=== PATIENT | male | born 1985 | race Caucasian/White ===

== ENCOUNTER 2016-06-19 17:31 | Observation (INO) | payer OTHER ==
[~2016-06-19] VITALS: Ht 182.9 cm; Wt 93.4 kg
[2016-06-19 17:45] LABS: BASO # 0.1 (0.0-0.2); BASO % 0.5 % (0.0-2.0); EOS # 0.1 (0.0-0.7); EOS % 0.5 % (0-4.0); GRAN # 10.3 (1.4-6.5); GRAN % 80.3 % (42.2-75.2); HEMATOCRIT 42.5 % (42.0-52.0); HEMOGLOBIN 14.7 g/dl (13.5-18.0); LYMPH # 1.5 (1.2-3.4); MEAN CELL VOLUME 89 fl (80.0-100.0); MEAN CORPUSCULAR HEMOGLOBIN 31 pg (27.0-31.0); MEAN CORPUSCULAR HGB CONC 35 g/dl (33.0-37.0); MEAN PLATELET VOLUME 10.3 fl (7.4-10.4); MONO # 0.8 (0.1-0.6); MONO % 6.4 % (1.7-9.3); PLATELET COUNT 266 K/mm3 (130-400); RED BLOOD COUNT 4.79 M/mm3 (4.20-5.60); REDCELL DISTRIBUTION WIDTH-CV 12.5 % (11.5-14.5); WHITE BLOOD COUNT 12.8 K/mm3 (4.8-10.8)
[2016-06-19 17:48] LABS: INR 1.1 (0.8-3.0); PROTHROMBIN TIME 12.4 SECONDS (9.7-12.8)
[2016-06-19 17:51] LABS: PARTIAL THROMBOPLASTIN TIME 28.2 SECONDS (26.0-37.0)
[2016-06-19 17:55] LABS: ADJUSTED CALCIUM 9.2 mg/dL (8.4-10.2); BILIRUBIN,TOTAL 0.9 mg/dL (0.0-1.0); CALCIUM 9.2 mg/dL (8.4-10.2); CREATININE, serum 1.06 mg/dL (0.66-1.25); POTASSIUM 3.6 mmol/L (3.4-5.0); TOTAL PROTEIN 7.2 gm/dL (6.4-8.2)
[2016-06-19 19:34] VITALS: BP 106/76; PULSE 81; TEMP 98.3
[2016-06-20 02:08] VITALS: BP 101/71; PULSE 77; TEMP 97.7
[2016-06-20 05:32] VITALS: BP 115/71; PULSE 78; TEMP 97.8
[2016-06-20 09:14] LABS: BASO % 0.6 % (0.0-2.0); EOS # 0.1 (0.0-0.7); EOS % 1.5 % (0-4.0); GRAN # 4.4 (1.4-6.5); GRAN % 60.3 % (42.2-75.2); HEMATOCRIT 39.5 % (42.0-52.0); HEMOGLOBIN 13.1 g/dl (13.5-18.0); LYMPH # 2.1 (1.2-3.4); LYMPH % 28.4 % (20.0-51.0); MEAN CELL VOLUME 91 fl (80.0-100.0); MEAN CORPUSCULAR HEMOGLOBIN 30 pg (27.0-31.0); MEAN CORPUSCULAR HGB CONC 33 g/dl (33.0-37.0); MEAN PLATELET VOLUME 10.5 fl (7.4-10.4); MONO # 0.7 (0.1-0.6); MONO % 9.1 % (1.7-9.3); PLATELET COUNT 255 K/mm3 (130-400); RED BLOOD COUNT 4.33 M/mm3 (4.20-5.60); REDCELL DISTRIBUTION WIDTH-CV 12.9 % (11.5-14.5); WHITE BLOOD COUNT 7.3 K/mm3 (4.8-10.8)
[2016-06-20 09:30] LABS: ADJUSTED CALCIUM 9.1 mg/dL (8.4-10.2); ALBUMIN 3.5 gm/dL (3.5-5.0); CALCIUM 8.7 mg/dL (8.4-10.2); CREATININE, serum 0.91 mg/dL (0.66-1.25); POTASSIUM 3.7 mmol/L (3.4-5.0); TOTAL PROTEIN 6.6 gm/dL (6.4-8.2)
[2016-06-20 10:00] VITALS: BP 123/78; PULSE 67; TEMP 98
[2016-06-20 14:06] VITALS: BP 117/83; PULSE 61; TEMP 98
[2016-06-20 17:19] VITALS: BP 118/76; PULSE 62; TEMP 97.8
[2016-06-20 21:53] VITALS: BP 114/77; PULSE 55; TEMP 97.8
[2016-06-21 06:22] VITALS: BP 125/84; PULSE 60; TEMP 97.8
[2016-06-21 07:13] LABS: ADJUSTED CALCIUM 9.3 mg/dL (8.4-10.2); ALBUMIN 3.3 gm/dL (3.5-5.0); BILIRUBIN,TOTAL 0.9 mg/dL (0.0-1.0); CALCIUM 8.7 mg/dL (8.4-10.2); CREATININE, serum 0.89 mg/dL (0.66-1.25); POTASSIUM 3.6 mmol/L (3.4-5.0); TOTAL PROTEIN 6.3 gm/dL (6.4-8.2)
[2016-06-21 08:59] VITALS: BP 112/75; PULSE 57; TEMP 98
[2016-06-21 10:50] LABS: HIV 1/2 Antibodies Non-Reactive; HIV-1p24 Antigen Non-Reactive
[2016-06-21 22:48] LABS: HEPATITIS B SURFACE AB-QL Positive (())
== END 2016-06-21 14:15 | disposition home or self-care (01) ==
LOC: COL.ER 17:31 → SURG 18:31
PROVIDERS: Emergency Medicine; Surgery
DX: K81.9 Cholecystitis, unspecified (principal); R10.13 Epigastric pain; R11.2 Nausea with vomiting, unspecified; N28.1 Cyst of kidney, acquired
CPT/HCPCS: A9537; C9113; G0378; J1170; J1956; J2270; J2405; J2805; J7030; Q9967